=== PATIENT | male | born 1935 | race Caucasian/White ===

== ENCOUNTER 2023-03-05 13:00 | Emergency (ER) | payer MEDICARE, BC, SELFPAY ==
[2023-03-05] VITALS (10 sets, daily range): BP systolic 130–141; BP diastolic 58–71; PULSE 69–85; RESP 22; TEMP 36.8; O2SAT 97–100; BMI 23.5
--- NOTE | 2023-03-05 14:01 | ED_ITS ---
HPI - General Adult General Date Seen: 03/05/23 Chief complaint: Abdominal Pain Stated complaint: Pancreas issues Time Seen by Provider: 03/05/23 13:26 Source: patient Mode of arrival: ambulatory Limitations: no limitations History of Present Illness HPI narrative: Patient is an 87-year-old who had laminectomy surgery at [facility] on February 23. He says that he expected have some surgical pain, but he has been having some abdominal pain since his surgery which surprised him. He has been able eat drink, he has been having some loose stools, he has had some bright red blood particularly with wiping. Has not had significantly bloody stools, no black stools. He has had some urgency in terms of defecation and has been wearing a diaper due to that. Denies urinary symptoms. He has had some mid abdominal pain which has been pretty constant, has not been getting significantly worse. But yesterday he went to see his clinic doctor because of the abdominal pain and rectal bleeding. He had labs done there was called today saying the had some evidence of pancreatic inflammation and should come to the ER. He does not know anything further about that. He has not had any nausea or vomiting. Not had fevers. Denies chest pain or difficulty breathing. Has a little pain at the surgical site but not severe. Related Data Allergies Allergy/AdvReac Type Severity Reaction Status Date / Time No Known Drug Allergies Allergy Verified 03/05/23 15:02 Review of Systems Status of ROS: Reports: 10 or more systems reviewed and unremarkable except as noted in History and below [facility] Social History Smoking Status: Never smoker Do you use any of these nicotine containing products: None Second hand tobacco smoke exposure: No How often do you have a drink containing alcohol: 2-3 times a week How many standard drinks containing alcohol do you have on a typical day: 1 or 2 How often do you have six or more drinks on one occasion: Never AUDIT-C Alcohol total score: 3 Non-prescribed substance use: denies use service: Yes Exam Narrative: Exam Narrative: Vital signs as noted above. In general, an alert, well-appearing patient. He looks comfortable. Head: Normocephalic, atraumatic. Eyes: Pupils are equal reactive. Extraocular movements are full. Conjunctivae are normal. No scleral icterus. ENT: Mucous membranes are moist. Throat is normal. Neck: Supple without lymphadenopathy. Heart: Regular rate and rhythm. No murmur or rub. Lungs: Clear bilaterally. No increased work of breathing, crackles or wheezes. Abdomen: Soft and nondistended. Minimal tenderness, no rebound guarding or rigidity. Extremities: Well perfused. No edema. No calf tenderness. Pulses intact. Neurologic: Patient is alert and oriented to person and place. Speech is fluent. Face is symmetric. Moves all extremities equally. Affect: Normal. Skin: Warm and dry. Well perfused. Const: Vital Signs, click to edit/add: Vital Signs - 24 hr 03/05/23 13:09 03/05/23 14:22 03/05/23 14:30 Temperature 98.2 F Pulse Rate 73 72 Pulse Rate [Pulse Oximeter] 83 Respiratory Rate 22 Blood Pressure Blood Pressure [Ri ght Upper Arm] 130/64 Pulse Oximetry 97 100 99 Oxygen Delivery Me thod Room Air 03/05/23 14:32 03/05/23 14:45 03/05/23 15:12 Temperature Pulse Rate 69 81 74 Pulse Rate [Pulse Oximeter] Respiratory Rate Blood Pressure 139/71 Blood Pressure [Ri ght Upper Arm] Pulse Oximetry 99 100 99 Oxygen Delivery Me thod 03/05/23 15:15 03/05/23 15:30 03/05/23 15:32 Temperature Pulse Rate 72 75 85 Pulse Rate [Pulse Oximeter] Respiratory Rate Blood Pressure 141/58 H Blood Pressure [Ri ght Upper Arm] Pulse Oximetry 100 99 100 Oxygen Delivery Me thod 03/05/23 15:45 Temperature Pulse Rate 78 Pulse Rate [Pulse Oximeter] Respiratory Rate Blood Pressure Blood Pressure [Ri ght Upper Arm] Pulse Oximetry 99 Oxygen Delivery Me thod Documenting provider has reviewed patient's vital signs: yes Course Course Hospital Course: Initially, I ordered labs. His abdominal exam was benign, I was not particularly concerned about issues such as bowel obstruction, mesenteric ischemia, diverticulitis, colitis. He does note some bright red blood per rectum, but this seems to be mostly with wiping, and he saw his primary doctor yesterday so I think this can reasonably be followed up there unless his hemoglobin is low. He has had colonoscopies in the past, he notes probably last 1 was in his 70s, he has had polyps removed, no other significant findings per his memory. His white blood cell count was normal at 9.7, hemoglobin was 12.7. Platelets normal. Metabolic panel was unremarkable. His lactate was normal at 0.7. AST was 42, ALT of 57, mildly elevated but not impressively so. Alk-phos was normal and bilirubin was normal. His lipase came back at 354. This is mildly elevated, but he is complaining of 1 week of fairly mild abdominal pain with a normal appetite, no nausea or vomiting. I elected to do a CT scan to see if there was any evidence of inflammation around the pancreas or any other abnormalities to explain his abdominal pain. By my review, there was no significant inflammation around the pancreas, I did not see any evidence of diverticulitis or colitis, no obstruction. Overall was fairly unimpressive. The final radiology report is as follows:Impression: Grossly normal appearance of the pancreas with mild prominence of the main pancreatic duct. No overt peripancreatic inflammatory changes to suggest radiologically evident pancreatitis; however, correlate with serum lipase levels. Postoperative change of the L4-L5 level status post decompressive laminectomy without obvious complication. Incidental note made of a herniated loop of mid sigmoid colon into a large left inguinal hernia defect. No evidence of incarceration. No other acute abnormalities are appreciated. Overall, I think this is reassuring. He remains trouble here, abdominal exam remains benign. I have discussed with him that his lipase is in fact mildly elevated by think this is nonspecific in this setting. He does not present with signs and symptoms of significant pancreatitis I think it is reasonable to let him go home and see how he does over the weekend. I have asked him to maintain a bland diet, and have reviewed with him that it is certainly possible that this represents early pancreatitis. If he is having worsening abdominal pain, develops symptoms of fever, vomiting, etcetera he should return for re- evaluation. Otherwise, I would like him to follow up with his clinic next week for re-evaluation, a repeat lipase could be obtained at that time. He should follow-up with his primary doctor for the GI bleeding as well. His hemoglobin is 12.7. Vital Signs Vital signs: Initial Vital Signs Temperature 98.2 F 03/05/23 13:09 Temperature Source Temporal Artery Scan 03/05/23 13:09 Pulse Rate 83 03/05/23 13:09 Pulse Rhythm Regular 03/05/23 13:09 Respiratory Rate 03/05/23 13:09 Blood Pressure 130/64 03/05/23 13:09 Blood Pressure Mean 86 03/05/23 13:09 Blood Pressure Position Supine 03/05/23 13:09 Pulse Oximetry 97 03/05/23 13:09 Oxygen Delivery Method Room Air 03/05/23 13:09 Vital Signs Temperature 98.2 F 03/05/23 13:09 Pulse Rate 83 03/05/23 13:09 Respiratory Rate 22 03/05/23 13:09 Blood Pressure 130/64 03/05/23 13:09 Pulse Oximetry 97 03/05/23 13:09 Oxygen Delivery Method Room Air 03/05/23 13:09 Temperature 98.2 F 03/05/23 13:09 Pulse Rate 78 03/05/23 15:45 Respiratory Rate 03/05/23 13:09 Blood Pressure 141/58 H 03/05/23 15:32 Pulse Oximetry 99 03/05/23 15:45 Oxygen Delivery Method Room Air 03/05/23 13:09 Medical Decision Making Lab Data Labs: Lab Results 03/05/23 03/05/23 Range/Units 14:00 14:11 WBC 9.68 (4.50-11.00) K/uL RBC 3.89 L (4.30-5.90) m/uL Hgb 12.7 L (13.5-17.5) gm/dL Hct 37.3 (37.0-53.0) % MCV 96 (80-100) fL MCH 33 (26-34) pg MCHC 34 (32-36) gm/dL RDW Coeff of Zheng 14.0 (11.5-15.5) % Plt Count 370 (140-440) K/uL Neut % (Auto) 70.4 (42.0-72.0) % Lymph % (Auto) 16.6 L (20-44) % Morrill % (Auto) 10.6 (0.0-11.0) % Eos % (Auto) 1.0 (0.0-7.0) % Baso % (Auto) 0.3 (0.0-3.0) % Neut # (Auto) 6.80 (1.7-7.0) K/uL Lymph # (Auto) 1.60 (0.90-2.90) K/uL Morrill # (Auto) 1.00 H (0.00-0.90) K/UL Eos # (Auto) 0.10 (0.00-0.50) K/uL Baso # (Auto) 0.03 (0.00-0.30) K/uL Sodium 134 L (135-149) mmol/L Potassium 4.5 (3.6-5.1) mmol/L Chloride 101 (96-114) mmol/L Carbon Dioxide 26 (20-32) mmol/L BUN 21 (7-30) mg/dL Creatinine 1.0 (0.5-1.5) mg/dL Estimated Creat Clear 50.49 Estimated GFR 74 ml/min Glucose 91 (60-115) mg/dL Lactate 0.7 (0.5-1.9) mmol/L Calcium 9.1 (8.4-10.6) mg/dL Total Bilirubin 0.3 (0.1-1.5) mg/dL Direct Bilirubin 0.1 (0.0-0.5) mg/dL AST 42 H (12-35) U/L ALT 57 H (4-50) U/L Alkaline Phosphatase 60 (40-150) U/L C-Reactive Protein 0.7 (0.5-1.0) mg/dL Total Protein 6.4 (6.0-8.3) g/dL Albumin 3.9 (3.3-5.0) g/dL Lipase 354 H (23-300) U/L Urine Color Yellow (Yellow) Urine Appearance Clear (Clear) Urine pH 5.5 (5.0-8.5) Ur Specific [place] 1.025 (1.000-1.030) Urine Protein Negative (Negative) Urine Glucose (UA) Negative (Negative) Urine Ketones Negative (Negative) Urine Blood Negative (Negative) Urine Nitrite Negative (Negative) Urine Bilirubin Negative (Negative) Urine Urobilinogen 0.2 (0.2-1.0) Ur Leukocyte Esterase Negative (Negative) Urine RBC 0-2 (0-2) Urine WBC 0-2 (0-5) Ur Squamous Epith Cells Few (None-Few) Urine Bacteria None (None) Discharge Plan Discharge Clinical Impression: BRBPR (bright red blood per rectum), Elevated lipase Patient Disposition: Home, Self-Care Condition: Stable Additional Instructions: Your CT scan does not show any evidence of significant inflammation around your pancreas or other notable abnormalities to explain abdominal pain. You do have a large hernia in your left groin, but at this time this does not seem to be causing any problems. If you develop significant pain in this area, vomiting, fever, or other changes, you should come back for re-evaluation. Otherwise, I would recommend a bland diet for a couple of days, and re-evaluation with your primary doctor next week to reassess her status. Your lipase today is 350, which is very minimally elevated, but nonspecific in the setting of your other symptoms. Follow Up/Referrals: Felipe Orellana MD [Primary Care Provider] - Stand Alone Forms: [employer] Instructions
[2023-03-05 14:18] LABS: Lactate* 0.7 mmol/L (0.5-1.9)
[2023-03-05] MEDS: 0.9 % SODIUM CHLORIDE 500 ML 500 ML IV (14:22)
[2023-03-05 14:23] LABS: Appearance Urine Clear (Clear); Bilirubin Urine Negative (Negative); Blood Urine Negative (Negative); Color Urine Yellow (Yellow); Glucose Urine Negative (Negative); Ketones Urine Negative (Negative); Leukocyte Esterase Urine Negative (Negative); Nitrite Urine Negative (Negative); Protein Urine Negative (Negative); Specific Gravity Urine 1.025 (1.000-1.030); Urobilinogen Urine 0.2 (0.2-1.0); pH Urine 5.5 (5.0-8.5)
[2023-03-05 14:27] LABS: RBC Urine 0-2 (0-2); Squamous Epithelial Cell Urine Few (None-Few); WBC Urine 0-2 (0-5)
[2023-03-05 14:35] LABS: Albumin* 3.9 g/dL (3.3-5.0); Chloride* 101 mmol/L (96-114); Sodium* 134 mmol/L (135-149)
[2023-03-05 14:36] LABS: Potassium* 4.5 mmol/L (3.6-5.1)
[2023-03-05 14:38] LABS: Est. Creatinine Clearance* 50.49; Estimated Glomerular Filt Rate 74 ml/min
[2023-03-05 14:39] LABS: Alanine Aminotransferase* 57 U/L (4-50); Alkaline Phosphatase* 60 U/L (40-150); Aspartate Amino Transferase* 42 U/L (12-35); Bilirubin Direct* 0.1 mg/dL (0.0-0.5); Bilirubin Total* 0.3 mg/dL (0.1-1.5); Blood Urea Nitrogen* 21 mg/dL (7-30); Calcium* 9.1 mg/dL (8.4-10.6); Carbon Dioxide* 26 mmol/L (20-32); Glucose* 91 mg/dL (60-115); Lipase* 354 U/L (23-300); Total Protein* 6.4 g/dL (6.0-8.3)
[2023-03-05 14:42] LABS: C Reactive Protein* 0.7 mg/dL (0.5-1.0)
[2023-03-05 14:52] LABS: Basophils Absolute Auto 0.03 K/uL (0.00-0.30); Basophils Percent Auto 0.3 % (0.0-3.0); Hematocrit 37.3 % (37.0-53.0); Hemoglobin* 12.7 gm/dL (13.5-17.5); Immature Granulocytes Abs Auto 0.11 K/uL (0.00-0.30); Immature Granulocytes Pct Auto 1.1 %; Lymphocytes Percent Auto 16.6 % (20-44); Mean Corpuscular HGB Conc 34 gm/dL (32-36); Mean Corpuscular Hemoglobin 33 pg (26-34); Mean Corpuscular Volume 96 fL (80-100); Monocytes Percent Auto 10.6 % (0.0-11.0); Neutrophils Percent Auto 70.4 % (42.0-72.0); Platelet Count* 370 K/uL (140-440); Red Blood Count 3.89 m/uL (4.30-5.90); White Blood Count* 9.68 K/uL (4.50-11.00)
--- NOTE | 2023-03-05 14:52 | CRLHL7_ITS ---
For Patients: As a result of the 21st Century Cures Act, medical imaging exams and procedure reports are released immediately into your electronic medical record. You may view this report before your referring provider. If you have questions, please contact your health care provider. Indication: Abdominal pain x1 week, mildly elevated lipase history of laminectomy February 23, 2023 Technique: Volumetric multidetector CT images of the abdomen and pelvis were obtained after the administration of intravenous contrast. 74 cc Isovue 370 low osmolar intravenous contrast Comparison: None available. Findings: There is minimal basilar atelectasis and parenchymal scar. There is mild intrahepatic biliary ductal prominence. There is no focal abnormality. The portal vein is patent. There is prior cholecystectomy. There is no significant common biliary ductal dilatation or abrupt cut off. The spleen is normal in enhancement and size. There is mild nonspecific thickening of the gastric rugal folds and antrum with minimal mucosal hyperemia likely representing mild gastritis changes. There is mild prominence of the main pancreatic duct with otherwise preserved pancreatic attenuation. No overt peripancreatic inflammation is appreciated. The adrenal glands are unremarkable. Cystic changes of the kidneys are appreciated with nonspecific perinephric stranding. There is no evidence of distal obstructive calculus or hydronephrosis. There is moderate stool seen throughout the colon with dilated fluid-filled central small-bowel which may represent mild enteritis change. There is a small focal herniated loop of mid sigmoid colon within a left inguinal hernia. The appendix is not visualized, surgically absent. There is no significant mesenteric, retroperitoneal, or pelvic sidewall lymph nodes. The aorta is nonaneurysmal. There is no significant atherosclerotic disease appreciated. The solid pelvic viscera are grossly unremarkable. There is no free fluid or free air. There is demonstration of a large: Containing left inguinal hernia without evidence of incarceration The lumbar vertebral body heights are grossly maintained with minimal endplate Schmorl`s defects. There is decompressive laminectomy change at the L4-L5 level with minimal postoperative changes in the median soft tissues. Impression: Grossly normal appearance of the pancreas with mild prominence of the main pancreatic duct. No overt peripancreatic inflammatory changes to suggest radiologically evident pancreatitis; however, correlate with serum lipase levels. Postoperative change of the L4-L5 level status post decompressive laminectomy without obvious complication. Incidental note made of a herniated loop of mid sigmoid colon into a large left inguinal hernia defect. No evidence of incarceration. No other acute abnormalities are appreciated. Please note that all CT scans at this facility use dose modulation, iterative reconstruction, and/or weight-based dosing when appropriate to reduce radiation dose to as low as reasonably achievable. Dictated by Robert Bowser MD @ 03/05/2023 4:16:27 PM (Electronically Signed)
[2023-03-05 14:54] LABS: Slide Review Reflex No
== END 2023-03-05 16:53 | disposition home or self-care (01) ==
PROVIDERS: Emergency Provider Emergency Medicine; PCP Internal Medicine
DX: K62.5 Hemorrhage of anus and rectum (principal); R74.8 Abnormal levels of other serum enzymes
CPT/HCPCS: 36415; 74177; 80048; 80076; 81001; 83605; 83690; 85025; 86140; 96360; 99284; 99285; J7120; Q9967

== ENCOUNTER 2023-05-24 23:03 | Observation (INO) | payer MEDICARE, BC, SELFPAY ==
[2023-05-24 23:11] VITALS: BP 148/61; PULSE 60; RESP 18; TEMP 36.1; O2SAT 100
[2023-05-25] VITALS (12 sets, daily range): BP systolic 115–144; BP diastolic 63–77; PULSE 57–93; RESP 15–18; TEMP 36.1–36.4; O2SAT 96–100; BMI 22.9
--- NOTE | 2023-05-25 00:01 | ED_ITS ---
HPI - General Adult General Time Seen by Provider: 00:01 Date Seen: 05/25/23 Chief complaint: Fall/Minor Trauma Stated complaint: Memory loss, confusion, dizzy Time Seen by Provider: 05/25/23 00:00 Source: patient, family, RN notes reviewed and old records reviewed Mode of arrival: ambulatory Limitations: no limitations History of Present Illness HPI narrative: 87-year-old male who comes in today after a fall at home. Apparently he lost his balance in the garage and fell, did hit his head but no loss of consciousness. Patient has been having problems with memory for while and is having neuropsychiatric testing done this fall. Family notes the patient was confused this evening prior to his fall which is new today, does not remember events just prior to the home was having memory problems prior to this. Patient self has no complaints. Denies headache, neck pain, chest pain, breathing difficulty, shortness of breath, nausea, vomiting, diarrhea. Related Data Allergies Allergy/AdvReac Type Severity Reaction Status Date / Time No Known Drug Allergies Allergy Verified 03/05/23 15:02 Review of Systems Status of ROS: Reports: 10 or more systems reviewed and unremarkable except as noted in History and below [facility] Social History Smoking Status: Never smoker Do you use any of these nicotine containing products: None Second hand tobacco smoke exposure: No How often do you have a drink containing alcohol: 2-3 times a week How many standard drinks containing alcohol do you have on a typical day: 1 or 2 How often do you have six or more drinks on one occasion: Never AUDIT-C Alcohol total score: 3 Non-prescribed substance use: denies use service: Yes Exam Narrative: Exam Narrative: General: Well-developed and well-nourished, no acute distress Head: Atraumatic and normocephalic Eyes: Pupils are equal reactive, extraocular motions intact, conjunctiva clear ENT: External nose and ears are normal, posterior pharynx without erythema or exudate Neck: No midline cervical tenderness, full spontaneous range of motion the neck, trachea midline, no adenopathy Heart: Regular rate and rhythm no murmurs or thrills Lungs: Clear to auscultation bilaterally without wheezes or crackles Abdomen: Soft, nontender, nondistended with active bowel sounds Musculoskeletal: No tenderness, deformity, or edema Neurologic: Awake, alert, and oriented x1, no gross focal neurologic deficits, cranial nerves intact as tested Psych: Mood and affect are appropriate Skin: No rashes Const: Vital Signs, click to edit/add: Vital Signs - 24 hr 05/24/23 23:11 05/25/23 01:00 05/25/23 01:02 Temperature 97.0 F L Pulse Rate 60 59 L Pulse Rate [Left P ulse Oximeter] 60 Respiratory Rate 18 18 18 Blood Pressure 125/65 133/69 Blood Pressure [Ri ght Upper Arm] 148/61 H Pulse Oximetry 100 99 96 Oxygen Delivery Me thod Room Air Course Course Hospital Course: Patient seen examined, prior records are reviewed. Patient presents today with acute confusion this afternoon on top of some pre-existing memory problems. On initial exam, patient follows direction but has repetitive questioning, oriented only to person although does recognize family members. No focal neurologic deficits and no external signs of head trauma. Labs and head CT are ordered to evaluate for possible cause of confusion. Reevaluation(s) Time of Reevaluation #1: 01:22 Reevaluation #1: Head CT independently interpreted by me negative for acute findings. Labs independently interpreted by me with reassuring CBC, urinalysis not consistent with infection, basic panel reassuring, hepatic panel reassuring. Venous blood gas does not demonstrate respiratory acidosis or hypercarbia. Blood alcohol is significantly elevated at 0.19 which may be contributing to patient's symptoms of confusion tonight. Otherwise remains vitally stable. Time of Reevaluation #2: 01:35 Reevaluation #2: Patient rechecked, discussed CT and lab findings so far. Patient still feels well, family thinks he is mentating little more appropriately. Suspect that symptoms may be a combination of alcohol intoxication plus head injury with no acute intracranial findings on CT scan, no hemorrhage. Family is a little concerned about taking him home, and although I suspect he will clear overnight if he fails to do so appropriately, would need further evaluation in the hospital including possibly MRI. Because of this, plan for observation tonight and re-evaluation the morning. Care will be discussed with [facility] hospitalist. Time of Reevaluation #3: 02:01 Reevaluation #3: Care discussed with hospitalist for admission Vital Signs Vital signs: Initial Vital Signs Temperature 97.0 F L 05/24/23 23:11 Temperature Source Temporal Artery Scan 05/24/23 23:11 Pulse Rate 60 05/24/23 23:11 Pulse Rhythm Regular 05/24/23 23:11 Respiratory Rate 18 05/24/23 23:11 Blood Pressure 148/61 H 05/24/23 23:11 Blood Pressure Mean 90 05/24/23 23:11 Blood Pressure Position Sitting 05/24/23 23:11 Pulse Oximetry 100 05/24/23 23:11 Oxygen Delivery Method Room Air 05/24/23 23:11 Vital Signs Temperature 97.0 F L 05/24/23 23:11 Pulse Rate 60 05/24/23 23:11 Respiratory Rate 18 05/24/23 23:11 Blood Pressure 148/61 H 05/24/23 23:11 Pulse Oximetry 100 05/24/23 23:11 Oxygen Delivery Method Room Air 05/24/23 23:11 Temperature 97.0 F L 05/24/23 23:11 Pulse Rate 59 L 05/25/23 01:02 Respiratory Rate 18 05/25/23 01:02 Blood Pressure 133/69 05/25/23 01:02 Pulse Oximetry 96 05/25/23 01:02 Oxygen Delivery Method Room Air 05/24/23 23:11 Medical Decision Making Medical Records Medical records reviewed: Yes I reviewed the patient's medical records Lab Data Lab results reviewed: Yes I reviewed the patient's lab results Labs: Lab Results 05/25/23 05/25/23 05/25/23 Range/Units 00:33 00:35 01:39 WBC 9.46 (4.50-11.00) K/uL RBC 4.38 (4.30-5.90) m/uL Hgb 13.7 (13.5-17.5) gm/dL Hct 41.1 (37.0-53.0) % MCV 94 (80-100) fL MCH 31 (26-34) pg MCHC 33 (32-36) gm/dL RDW Coeff of Zheng 13.1 (11.5-15.5) % Plt Count 286 (140-440) K/uL Neut % (Auto) 73.6 H (42.0-72.0) % Lymph % (Auto) 18.4 L (20-44) % Coleman % (Auto) 6.7 (0.0-11.0) % Eos % (Auto) 0.8 (0.0-7.0) % Baso % (Auto) 0.1 (0.0-3.0) % Neut # (Auto) 7.00 (1.7-7.0) K/uL Lymph # (Auto) 1.70 (0.90-2.90) K/uL [place] # (Auto) 0.60 (0.00-0.90) K/UL Eos # (Auto) 0.08 (0.00-0.50) K/uL Baso # (Auto) 0.01 (0.00-0.30) K/uL Abs Immat Gran (auto) 0.04 (0.00-0.30) K/uL Imm/Tot Granulo (auto) 0.4 % VBG pH 7.316 L (7.32-7.43) VBG pCO2 48 (40-50) mmHG VBG pO2 23.8 L (25-47) mmHG VBG HCO3 24 (21-28) mmol/L Sodium 140 (135-149) mmol/L Potassium 3.7 (3.6-5.1) mmol/L Chloride 107 (96-114) mmol/L Carbon Dioxide 23 (20-32) mmol/L BUN 24 (7-30) mg/dL Creatinine 1.2 (0.5-1.5) mg/dL Estimated GFR 59 ml/min Glucose 102 (60-115) mg/dL Calcium 9.2 (8.4-10.6) mg/dL Magnesium 2.3 (1.5-2.6) mg/dL Total Bilirubin 0.2 (0.1-1.5) mg/dL Direct Bilirubin 0.0 (0.0-0.5) mg/dL AST 26 (12-35) U/L ALT 27 (4-50) U/L Alkaline Phosphatase 77 (40-150) U/L Total Protein 6.9 (6.0-8.3) g/dL Albumin 4.0 (3.3-5.0) g/dL Urine Color Yellow (Yellow) Urine Appearance Clear (Clear) Urine pH 5.5 (5.0-8.5) Ur Specific [place] 1.015 (1.000-1.030) Urine Protein 2+ A (Negative) Urine Glucose (UA) Negative (Negative) Urine Ketones Negative (Negative) Urine Blood Negative (Negative) Urine Nitrite Negative (Negative) Urine Bilirubin Negative (Negative) Urine Urobilinogen 0.2 (0.2-1.0) Ur Leukocyte Esterase Negative (Negative) Urine RBC 0-2 (0-2) Urine WBC 0-2 (0-5) Ur Squamous Epith Cells Few (None-Few) Urine Bacteria None (None) Ethyl Alcohol 0.19 H (0.01-0.03) % Lab Acknowledgement Test Added ECG Data Attestation: I personally reviewed and interpreted this ECG as follows: Prior ECG tracings: not available for review Interpretation: Performed at 1:46 a.m. demonstrates sinus rhythm rate 57, no acute ST elevations or depressions, normal intervals, normal axis, QTC 449, LA 170. No prior for comparison. Discharge Plan Discharge Clinical Impression: Alcohol intoxication, Fall, Acute encephalopathy Patient Disposition: Admitted As Observation
--- NOTE | 2023-05-25 00:11 | CRLHL7_ITS ---
For Patients: As a result of the Century Cures Act, medical imaging exams and procedure reports are released immediately into your electronic medical record. You may view this report before your referring provider. If you have questions, please contact your health care provider. INDICATION: Altered mental status, fall. TECHNIQUE: Head CT without contrast. COMPARISON: 07/16/2021. FINDINGS: CSF spaces: Proportionate prominence of the ventricles and sulci, reflecting mild generalized cerebral volume loss. Brain parenchyma: Patchy white matter low attenuation changes, nonspecific but likely reflecting chronic small vessel ischemic disease. No sign of mass, hemorrhage, or midline shift. Atherosclerotic calcifications of the cavernous carotids and carotid siphons. Skull base and calvarium: Mild mucosal thickening in the maxillary sinuses. Mastoid air cells are clear. Bilateral lens extraction. No skull fractures. IMPRESSION: No acute intracranial abnormality. Please note that all CT scans at this facility use dose modulation, iterative reconstruction, and/or weight-based dosing when appropriate to reduce radiation dose to as low as reasonably achievable. Dictated by Harley Reynoso MD @ 05/25/2023 1:21:35 AM (Electronically Signed)
--- OUTSIDE RECORDS SUMMARY | 2023-05-25 00:29 | XMS_ITS | Patient Health Record ---
Author Name Unknown Organization [facility] Address [address] [place] [address] [address] [place] [address] Care Team Providers Care Ring Stamper Name Role Phone Esteban[place]ather[place] Primary Care Provider UnavailStephen Hubbard Unavailable [phone] Gregg Cho Unavailable [phone] Mery Liang Unavailable [phone] Emeli Hooks Unavailable [phone] Cinthia Jorge Unavailable [phone] ALLERGIES No Known Allergies REASON FOR REFERRAL Reason REHAB PT and OT: MED X LUMBAR Please treat and evaluate for low back pain with Lumbar MedX and leg strengthening. Please call patient to schedule at [phone]. Diagnosis 1 Low back pain, unspe cified (M54.50) Referral Organization [facility] Referring Provider First Name Stephen Referring Provider Last Name Stefania Referring Provider Speciality Pain Medic ine Referred Provider Florecita Kirk Referred Provider Specialty Rehabilitati on General Notes Michi Rodriguez 07/25 12:36:17 PM >[employer] Medicare, no PA required. Ok to schedule.Kenzie Shelbie 08/10/2022 02:01:22 PM >Pt is scheduled Referral Priority Routine MEDICATIONS Medication SIG (Take, Route, Frequency, Duration) Notes Start Date End Date Status Atenolol 50 MG 1 tablet Orally Once a day Active Atorvastatin Calcium Active Sertraline HCl 50 MG 1 tablet Orally Once a day Active Lisinopril 20 MG 1 tablet Orally Once a day Active Pantoprazole Sodium 40 MG 1 tablet Orally Once a day Active SOCIAL HISTORY Tobacco Use: Social History Observation Description Date Details (start date - stop date) Never Smoker NA - NA Sex Assigned At : Social History Observation Description Sex Assigned At Unknown Tobacco Use/Smoking: Question Answer Notes Are you a nonsmoker Alcohol Screen Question Answer Notes Did you have a drink containing alcohol in the p ast year? No Points 0 Interpretation Negative PROBLEMS Problem Type ICD Code Onset Dates Problem Status W/U Status Risk SNOMED Code Notes Problem Other chronic pain (G89.29) Active confirmed Chronic pain (41066265) VITAL SIGNS Blood pressure diastolic 64 mm Hg 08/07/2022 Height 67 in 08/07/2022 Blood pressure systolic 130 mm Hg 08/07/2022 Weight 151 lbs 08/07/2022 BMI 23.65 kg/m2 08/07/2022 Encounters Encounter Location Date Provider Diagnosis [facility] [address] [facility] [address] [place] [address] 07/27/2022 Gregg Cho [address] [facility] [address] [facility] [address] [place] [address] 08/07/2022 Stephen Aguiar Other chronic pain G89.29 and Low back pain, unspecified M54.50 [facility] [address] [place] [address] 08/20/2022 Emeli Hooks Other chronic pain G89.29 and Low back pain, unspecified M54.50 [facility] [address] [place] [address] 08/24/2022 Cinthia Htet Other chronic pain G89.29 and Low back pain, unspecified M54.50 [facility] [address] [place] [address] 08/27/2022 Cinthia Htet Other chronic pain G89.29 and Low back pain, unspecified M54.50 [facility] [address] [place] [address] 08/31/2022 Cinthia Htet Other chronic pain G89.29 and Low back pain, unspecified M54.50 [facility] [address] [place] [address] 09/03/2022 Cinthia Htet Other chronic pain G89.29 and Low back pain, unspecified M54.50 [facility] [address] [place] [address] 09/07/2022 Mery Liang Other chronic pain G89.29 and Low back pain, unspecified M54.50 [facility] [address] [place] [address] 09/10/2022 Cinthia Jorge Other chronic pain G89.29 and Low back pain, unspecified M54.50 [facility] [address] [place] [address] 09/15/2022 Stephen Aguiar ASSESSMENTS Encounter Date Diagnosis Assessment Notes Treatment Notes Treatment Clinical Notes 09/10/2022 Other chronic pain (ICD-10 - G89.29) 09/07/2022 Other chronic pain (ICD-10 - G89.29) 09/03/2022 Other chronic pain (ICD-10 - G89.29) 08/31/2022 Other chronic pain (ICD-10 - G89.29) 08/27/2022 Other chronic pain (ICD-10 - G89.29) 08/24/2022 Other chronic pain (ICD-10 - G89.29) 08/20/2022 Other chronic pain (ICD-10 - G89.29) 08/07/2022 Other chronic pain (ICD-10 - G89.29) Shan is a 87 year old male with a pertinent past medical history significant for CAD, Acid Reflux, Depression, Hernia, Hearing Loss, Hypertension, and Stomach Ulcers who is presenting with chronic low back and bilateral lower extremity pain related to LSS. PLAN:- Conservative: remain active as able- Medications: Continue OTC NSAIDs- Imaging: reviewed 12/04/21 Lumbar MRI and Abdomen and Pelvis CT from 10/01/21- Injections/intervent ions: none- Referrals: Referred to Lumbar MedX with leg strengthening; consider surgical follow-up pending relief from PT I provided the patient with my card. He will return as needed for further evaluation. I will continue to monitor his progress, adjusting his treatment plan as needed. The patient was ready to learn and had no apparent learning barriers. Their learning preferences includes listening. The diagnosis and treatment plans were explained and the patient expressed understanding of the content. Discharge instructions reviewed verbally. Discussed the risks/benefits of prescribed medication. The patient is aware that medication may be discontinued at any time due to poor compliance with visits, and recommended treatment and/or if patient doesn't adhere to the signed pain contract. The patient was instructed to return to the office as scheduled and call with any questions, problems or concerns. 08/07/2022 Low back pain, unspecified (ICD-10 - M54.50) 08/20/2022 Low back pain, unspecified (ICD-10 - M54.50) 08/24/2022 Low back pain, unspecified (ICD-10 - M54.50) 08/27/2022 Low back pain, unspecified (ICD-10 - M54.50) 08/31/2022 Low back pain, unspecified (ICD-10 - M54.50) 09/03/2022 Low back pain, unspecified (ICD-10 - M54.50) 09/07/2022 Low back pain, unspecified (ICD-10 - M54.50) 09/10/2022 Low back pain, unspecified (ICD-10 - M54.50) 08/07/2022 Other I, Pastor cordova, am serving as a scribe to document services personally performed by Stephen Aguiar MD, based upon my observations and the provider's statements to me. All documentation has been reviewed by the aforementioned doctor prior to being entered into the official medical record. I, Stephen Aguiar MD attest that the above named individual is acting in scribe capacity, has observed my performance of the services and has documented them in accordance with my direction. The documentation recorded by the scribe accurately reflects the service I personally performed and the decisions made by me. PLAN OF TREATMENT No Information Insurance Providers Payer Name Payer Address Payer Phone Subscriber Number Group Number Insured Name Patient Relationship to Insured Coverage Start Date Coverage End Date [facility] Medicare [address] [place] [phone] [id number] Luther[employer]elope Shan Self - patient is the insured 2 MEDICAL (GENERAL) HISTORY Medical History History ICD Code CAD Acid reflux Depression hernia hearing loss Hypertension stomach ulcers Surgical History Surgery Date(Month/Year) cholecystectomy appendectomy prostatectomy
[2023-05-25 00:39] LABS: HCO3 VBG 24 mmol/L (21-28); PCO2 VBG 48 mmHG (40-50); PO2 VBG 23.8 mmHG (25-47); pH VBG 7.316 (7.32-7.43)
[2023-05-25 00:43] LABS: Basophils Absolute Auto 0.01 K/uL (0.00-0.30); Basophils Percent Auto 0.1 % (0.0-3.0); Eosinophils Absolute Auto 0.08 K/uL (0.00-0.50); Eosinophils Percent Auto 0.8 % (0.0-7.0); Hematocrit 41.1 % (37.0-53.0); Hemoglobin* 13.7 gm/dL (13.5-17.5); Immature Granulocytes Abs Auto 0.04 K/uL (0.00-0.30); Immature Granulocytes Pct Auto 0.4 %; Lymphocytes Percent Auto 18.4 % (20-44); Mean Corpuscular HGB Conc 33 gm/dL (32-36); Mean Corpuscular Hemoglobin 31 pg (26-34); Mean Corpuscular Volume 94 fL (80-100); Monocytes Percent Auto 6.7 % (0.0-11.0); Neutrophils Percent Auto 73.6 % (42.0-72.0); Platelet Count* 286 K/uL (140-440); RDW Coefficient of Variation % 13.1 % (11.5-15.5); Red Blood Count 4.38 m/uL (4.30-5.90); White Blood Count* 9.46 K/uL (4.50-11.00)
[2023-05-25 00:48] LABS: Slide Review Reflex No
[2023-05-25 00:51] LABS: Appearance Urine Clear (Clear); Bilirubin Urine Negative (Negative); Blood Urine Negative (Negative); Color Urine Yellow (Yellow); Glucose Urine Negative (Negative); Ketones Urine Negative (Negative); Leukocyte Esterase Urine Negative (Negative); Nitrite Urine Negative (Negative); Protein Urine 2+ (Negative); Specific Gravity Urine 1.015 (1.000-1.030); Urobilinogen Urine 0.2 (0.2-1.0); pH Urine 5.5 (5.0-8.5)
[2023-05-25 00:56] LABS: RBC Urine 0-2 (0-2); Squamous Epithelial Cell Urine Few (None-Few); WBC Urine 0-2 (0-5)
[2023-05-25 01:12] LABS: Chloride* 107 mmol/L (96-114); Potassium* 3.7 mmol/L (3.6-5.1); Sodium* 140 mmol/L (135-149)
[2023-05-25 01:15] LABS: Carbon Dioxide* 23 mmol/L (20-32); Creatinine* 1.2 mg/dL (0.5-1.5); Estimated Glomerular Filt Rate 59 ml/min; Ethanol* 0.19 % (0.01-0.03)
[2023-05-25 01:16] LABS: Aspartate Amino Transferase* 26 U/L (12-35); Bilirubin Total* 0.2 mg/dL (0.1-1.5); Blood Urea Nitrogen* 24 mg/dL (7-30); Calcium* 9.2 mg/dL (8.4-10.6); Glucose* 102 mg/dL (60-115); Magnesium* 2.3 mg/dL (1.5-2.6); Total Protein* 6.9 g/dL (6.0-8.3)
[2023-05-25 01:17] LABS: Alanine Aminotransferase* 27 U/L (4-50); Alkaline Phosphatase* 77 U/L (40-150)
[2023-05-25 02:10] LABS: Troponin I* < 0.01 ng/mL (0.01-0.04)
--- NOTE | 2023-05-25 02:43 | PC.NURSE ---
report given to Cadence Roberson/manager surgical
--- NOTE | 2023-05-25 02:46 | ED.NURSE ---
skin tear on left elbow cleaned, ointment applied, and band aid. bleeding had stopped prior to treatment
--- NOTE | 2023-05-25 02:56 | PC.NURSE ---
patient taken to room ccu3
--- NOTE | 2023-05-25 03:30 | P.IMCN_ITS ---
Date of Consult Consult date: 05/25/23 Primary Care Provider: Felipe Orellana MD Consult Narrative Reason for consult: Admission support Narrative: 87-year-old male with past medical history of reported short memory loss was brought into the hospital after a fall with acute encephalopathy. History was obtained from the patient as well as from his daughter was present at the time of my evaluation. He is hard of hearing and she assisted in providing history. She reports that he was visiting a friend last night and he experienced an episode where he suddenly became confused and did not recognize his friend or where he is. He was taken home but suffered a fall for which he was subsequently brought into the emergency department. His daughter reports no similar episodes of confusion in the past however he had at least 1-2 falls over the last year. He has a known history of CAD. No strokes or TIA in the past. He reports having alcohol drink while visiting with his friend In the ED, labs were unremarkable except for elevated ethanol levels. He was hemodynamically stable. CT of the head without acute intracranial abnormality. After 1 hour of observation he was starting to slightly improving however was opted to be admitted for observation. Review of Systems Status of ROS: Reports: 10 or more systems reviewed and unremarkable except as noted in History and below PFSH PFSH Social History Smoking Status: Never smoker Do you use any of these nicotine containing products: None Second hand tobacco smoke exposure: No How often do you have a drink containing alcohol: 2-3 times a week How many standard drinks containing alcohol do you have on a typical day: 1 or 2 How often do you have six or more drinks on one occasion: Never AUDIT-C Alcohol total score: 3 Non-prescribed substance use: denies use service: Yes Meds Home Medications and Allergies Allergies Allergy/AdvReac Type Severity Reaction Status Date / Time No Known Drug Allergies Allergy Verified 03/05/23 15:02 Exam Narrative: Exam Narrative: Exam (performed via interactive video with assistance of bedside nurse): General: alert, cooperative, no acute distress HEENT: hard of hearing, Pupils reported ERRL, oral mucosa pink and moist without erythema Lungs: clear to auscultation bilaterally without crackle or wheeze CV: regular rate and rhythm without loud murmur rub or gallop Abd: bowel sounds present, denies tenderness and does not exhibit signs of pain with palpation done by bedside nurse Ext: no pitting edema noted Skin: no rashes, bruises or lesions appreciated on gross visualization of exposed skin Neuro: alert, oriented x 3. CN III -VII, XI, XII grossly intact, moves all extremities without any significant focal deficit appreciated by nurse. no visible tremor Const: Vital Signs, click to edit/add: Vital Signs - 24 hr 05/24/23 23:11 05/25/23 01:00 05/25/23 01:02 Temperature 97.0 F L Pulse Rate 60 59 L Pulse Rate [Left P ulse Oximeter] 60 Respiratory Rate 18 18 18 Blood Pressure 125/65 133/69 Blood Pressure [Ri ght Upper Arm] 148/61 H Pulse Oximetry 100 99 96 Oxygen Delivery Me thod Room Air 05/25/23 01:21 05/25/23 01:42 05/25/23 02:01 Temperature Pulse Rate 58 L 63 57 L Pulse Rate [Left P ulse Oximeter] Respiratory Rate 15 16 18 Blood Pressure 135/67 128/63 136/67 Blood Pressure [Ri ght Upper Arm] Pulse Oximetry 100 98 100 Oxygen Delivery Me thod 05/25/23 02:21 05/25/23 02:41 Temperature Pulse Rate 60 62 Pulse Rate [Left P ulse Oximeter] Respiratory Rate 16 18 Blood Pressure 115/63 119/64 Blood Pressure [Ri ght Upper Arm] Pulse Oximetry 96 99 Oxygen Delivery Me thod Documenting provider has reviewed patient's vital signs: yes Labs Labs: Short CBC 05/25/23 Range/Units 00:33 WBC 9.46 (4.50-11.00) K/uL Hgb 13.7 (13.5-17.5) gm/dL Hct 41.1 (37.0-53.0) % Plt Count 286 (140-440) K/uL BMP 05/25/23 00:33 Sodium 140 Potassium 3.7 Chloride 107 Carbon Dioxide 23 BUN 24 Creatinine 1.2 Glucose 102 Calcium 9.2 Cardiac Enzymes 05/25/23 Range/Units 00:33 Troponin I < 0.01 L (0.01-0.04) ng/mL Liver Function 05/25/23 Range/Units 00:33 Total Bilirubin 0.2 (0.1-1.5) mg/dL Direct Bilirubin 0.0 (0.0-0.5) mg/dL AST 26 (12-35) U/L ALT 27 (4-50) U/L Alkaline Phosphatase 77 (40-150) U/L Albumin 4.0 (3.3-5.0) g/dL Urine 05/25/23 Range/Units 00:35 Urine Color Yellow (Yellow) Urine Appearance Clear (Clear) Urine pH 5.5 (5.0-8.5) Ur Specific [place] 1.015 (1.000-1.030) Urine Protein 2+ A (Negative) Urine Glucose (UA) Negative (Negative) Assessment and Plan Assessment and plan (1) Acute encephalopathy: Status: Acute (2) Fall: Status: Acute (3) Alcohol intoxication: Status: Acute (4) History of CAD (coronary artery disease): Status: Acute Plan 1. Acute encephalopathy: has resolved already, unclear etiology but appears to be likely triggered by alcohol, monitor mental status, CT head without acute intracranial abnormality, check ammonia, TSH and B12, has appoitment soon with neurology for assessment for recent memory issues. Family report recent MRI without acute findings. Exam non focal. 2. Hx of CAD: restart home meds 3. Bradycardia: Sinus without acute ST or T wave changes, monitor on telemetry DVT prophylaxis: Lovenox CODE STATUS: Full (need to be addressed) Thank you for including Dunia Nolasco Hospitalist in the patients care. This service is available for further assistance as requested by your care team by calling [phone].
[2023-05-25 07:40] LABS: Ammonia* < 9.0 umol/L (13.1-30.0)
--- NOTE | 2023-05-25 07:45 | PC.NURSE ---
Patient admitted to unit at 0250 accompanied by daughter and granddaughter. Patient had acute onset of confusion followed by a fall earlier in the night. Currently patient is alert and oriented x 4, denies any pain, shortness of breath or chest pain. Lung sounds clear, patient does have dry non-productive cough at baseline. Bowel sounds active x 4 quadrants, belly soft and non tender. Continent of bladder and bowel. Daughter reporting that patient had tested positive for covid the second week of April and has had a reoccurrence of symptoms with cough. Daughter also reporting that patient has had memory impairment and patient has an appointment with neuropsych for assessment.
[2023-05-25 07:57] LABS: TSH With Reflex to FT4* 0.821 uIU/mL (0.270-4.200)
[2023-05-25 08:16] LABS: Vitamin B12* 804 pg/mL (243-894)
[2023-05-25] MEDS: THIAMINE 100 MG TABLET PO (09:31)
[2023-05-25] MEDS: SODIUM CHLORIDE 0.9 % (FLUSH) 10 ML SYRINGE 5 ML IVF (09:32)
[2023-05-25] MEDS: ASPIRIN 81 MG TAB.CHEW PO (09:32)
[2023-05-25] MEDS: FOLIC ACID 1 MG TABLET PO (09:32)
--- NOTE | 2023-05-25 09:55 | PM.IMHP1 ---
Hospitalist- H&P: HPI History of Present Illness Date Seen: 05/25/23 Chief complaint: Memory loss, confusion, dizzy Narrative: Shan John is a 87 year old male with coronary artery disease and chronic back pain admit to the hospital after a fall with encephalopathy. Patient reports that he was having pizza with his friend. He then apparently fell though he does not remember any details of this. He was brought to the emergency room where evaluation showed no acute injury or illness. Head CT was unremarkable. He was found to have an alcohol level of 0.19. This was thought to be the most likely explanation for his altered mental status and fall. Secondhand records indicate that he has been getting evaluation for memory problems with outpatient neuropsychiatric testing pending. He tells me that he does not drink every day. He typically drinks 1 day a week on Fridays by his report. Last night he was drinking shots of Tequila with his pizza. He reports no other recent health concerns. He had back surgery and February and has recovered well from that by his report. Review of Systems Narrative: Patient reports some discomfort over the left shoulder blade. He is not aware of any other area of pain or injury. No recent illness. [facility] Medical History (Updated 05/25/23 @ 10:10 by Lorne Souza MD) Hyperlipidemia ?E78.5 - Hyperlipidemia, unspecified (ICD-10) Hypertension ?I10 - Essential (primary) hypertension (ICD-10) Prostate cancer ?C61 - Malignant neoplasm of prostate (ICD-10) History of coronary angiogram ?Z98.890 - Other specified postprocedural states (ICD-10) Lumbar spinal stenosis ?M48.061 - Spinal stenosis, lumbar region without neurogenic claudication (ICD-10) History of CAD (coronary artery disease) ?Z86.79 - Personal history of other diseases of the circulatory system (ICD-10) Surgical History (Updated 05/25/23 @ 10:02 by Lorne Souza MD) History of cholecystectomy ?Z90.49 - Acquired absence of other specified parts of digestive tract (ICD-10) History of cataract surgery ?Z98.49 - Cataract extraction status, unspecified eye (ICD-10) H/O radical prostatectomy ?Z90.79 - Acquired absence of other genital organ(s) (ICD-10) History of appendectomy ?Z90.49 - Acquired absence of other specified parts of digestive tract (ICD-10) History of lumbar laminectomy ?Z98.890 - Other specified postprocedural states (ICD-10) Social History (Updated 05/25/23 @ 10:03 by Lorne Souza MD) Narrative: He lives in [place] with his and daughter. Temporarily also has grandchildren living with him. His spends much of her time caring for her sister who was recently had a stroke. He is independent in activities of daily living. He he does not use an assistive device for walking. He does not smoke. He reports drinking alcohol typically 1 drink on Fridays. Code status is full What is your current living situation?: I presently have a place to live Problems where you live: no known problems Problems where you live details: NA In the past 12 months, utilities in danger of being shut off: no In the past 12 mos, have been you worried that your food would run out before you had money to buy more?: never true In the past 12 mos, the food you bought just didn't last and you didn't have money to buy more?: never true Highest level of school completed/degree received: Professional degree (, [employer], DVM, DDS) Smoking Status: Former smoker What tobacco products do you use: cigarettes Smoking quit date/years: >15 years ago Do you use any of these nicotine containing products: None Second hand tobacco smoke exposure: No How often do you have a drink containing alcohol: 2-4 times a month Alcohol type: beer and hard liquor How many standard drinks containing alcohol do you have on a typical day: 1 or 2 How often do you have six or more drinks on one occasion: Never AUDIT-C Alcohol total score: 2 Non-prescribed substance use: denies use Caffeine: No How often does anyone, including family, friends and others, physically hurt you: never How often does anyone, including family, friends and others, insult or talk down to you: never How often does anyone, including family, friends and others, threaten you with harm: never How often does anyone, including family, friends and others, scream or curse at you: never service: Yes Meds Home Medications and Allergies Home Medications Medication Instructions Recorded Confirmed Type atenolol 50 mg tablet 50 mg PO DAILY 05/25/23 05/25/23 History atorvastatin 40 mg tablet 40 mg PO DAILY 05/25/23 05/25/23 History lisinopril 20 mg tablet 20 mg PO DAILY 05/25/23 05/25/23 History pantoprazole 40 mg tablet,delayed 40 mg PO BID 05/25/23 05/25/23 History release sertraline 50 mg tablet 50 mg PO DAILY 05/25/23 05/25/23 History trazodone 50 mg tablet 50 mg PO HS PRN 05/25/23 05/25/23 History Allergies Allergy/AdvReac Type Severity Reaction Status Date / Time No Known Drug Allergies Allergy Verified 03/05/23 15:02 Exam Narrative: Exam Narrative: He is alert and appears in no distress. Speech is normal. He is oriented to his circumstances. Head is without obvious trauma. Eyes are normal. Extraocular movements are full. He has no ophthalmoplegia. Oropharynx with small airway. Otherwise normal. Neck is supple without mass or adenopathy. Respirations are clear to auscultation. Cardiovascular: S1, S2, regular rate and rhythm. Min is soft without tenderness or mass. He has no facial asymmetry. Strength testing is 5/5 in upper and lower extremities in shoulder flexion and extension, elbow flexion extension, wrist flexion and extension, finger extension, hip flexion, knee flexion and extension, ankle dorsiflexion and plantar flexion. With his eyes closed in his feet together he is able to stand up about 3 seconds before having to open his eyes and step to catch his balance. No pronator drift. He is unable to do tandem gait but can walk without assistance without any difficulties. [id number] is normal. He has a mild fine tremor. He tells me he has been diagnosed with essential tremor. Left shoulder has a small 1.5 cm abrasion. This is located over the lateral scapular spine. Mild surrounding bruising. He has normal range of motion at shoulder with mild discomfort when reaching behind his head. Some mild pain associated with strength testing but strength is otherwise normal. Const: Vital Signs, click to edit/add: Vital Signs - 24 hr 05/24/23 23:11 05/25/23 01:00 05/25/23 01:02 Temperature 97.0 F L Pulse Rate 60 59 L Pulse Rate [Left P ulse Oximeter] 60 Pulse Rate [Right Pulse Oximeter] Respiratory Rate 18 18 18 Blood Pressure 125/65 133/69 Blood Pressure [Ri ght Arm] Blood Pressure [Ri ght Upper Arm] 148/61 H Pulse Oximetry 100 99 96 Oxygen Delivery Me thod Room Air 05/25/23 01:21 05/25/23 01:42 05/25/23 02:01 Temperature Pulse Rate 58 L 63 57 L Pulse Rate [Left P ulse Oximeter] Pulse Rate [Right Pulse Oximeter] Respiratory Rate 15 16 18 Blood Pressure 135/67 128/63 136/67 Blood Pressure [Ri ght Arm] Blood Pressure [Ri ght Upper Arm] Pulse Oximetry 100 98 100 Oxygen Delivery Me thod 05/25/23 02:05 05/25/23 02:21 05/25/23 02:41 Temperature 97.0 F L Pulse Rate 60 62 Pulse Rate [Left P ulse Oximeter] Pulse Rate [Right Pulse Oximeter] 93 Respiratory Rate 18 16 18 Blood Pressure 115/63 119/64 Blood Pressure [Ri ght Arm] 144/77 H Blood Pressure [Ri ght Upper Arm] Pulse Oximetry 98 96 99 [facility] 05/25/23 03:00 05/25/23 03:15 05/25/23 03:15 Temperature 97.0 F L 97.0 F L Pulse Rate Pulse Rate [Left P ulse Oximeter] Pulse Rate [Right Pulse Oximeter] 93 93 Respiratory Rate 18 18 18 Blood Pressure Blood Pressure [Ri ght Arm] 144/77 H 144/77 H Blood Pressure [Ri ght Upper Arm] Pulse Oximetry 97 98 98 [facility] Room Air Room Air 05/25/23 07:00 05/25/23 07:39 Temperature 97.5 F L Pulse Rate 60 Pulse Rate [Left P ulse Oximeter] Pulse Rate [Right Pulse Oximeter] 93 Respiratory Rate 16 Blood Pressure Blood Pressure [Ri ght Arm] 124/63 Blood Pressure [Ri ght Upper Arm] Pulse Oximetry 99 Oxygen Delivery Me thod Room Air Documenting provider has reviewed patient's vital signs: yes Hospitalist - H&P: Result Labs Labs: Short CBC 05/25/23 Range/Units 00:33 WBC 9.46 (4.50-11.00) K/uL Hgb 13.7 (13.5-17.5) gm/dL Hct 41.1 (37.0-53.0) % Plt Count 286 (140-440) K/uL BMP 05/25/23 00:33 Sodium 140 Potassium 3.7 Chloride 107 Carbon Dioxide 23 BUN 24 Creatinine 1.2 Glucose 102 Calcium 9.2 Cardiac Enzymes 05/25/23 Range/Units 00:33 Troponin I < 0.01 L (0.01-0.04) ng/mL Liver Function 05/25/23 Range/Units 00:33 Total Bilirubin 0.2 (0.1-1.5) mg/dL Direct Bilirubin 0.0 (0.0-0.5) mg/dL AST 26 (12-35) U/L ALT 27 (4-50) U/L Alkaline Phosphatase 77 (40-150) U/L Albumin 4.0 (3.3-5.0) g/dL Urine 05/25/23 Range/Units 00:35 Urine Color Yellow (Yellow) Urine Appearance Clear (Clear) Urine pH 5.5 (5.0-8.5) Ur Specific [place] 1.015 (1.000-1.030) Urine Protein 2+ A (Negative) Urine Glucose (UA) Negative (Negative) Assessment and Plan Assessment and plan (1) Alcohol intoxication: Problem comment: Likely the cause of his fall, amnesia for events of last night, encephalopathy. Advise no drinking more than 1 drink in 1 day and getting help if unable to moderate drinking Status: Acute (2) Abrasion of left shoulder: Problem comment: Superficial abrasion without obvious bony, ligamentous or tendon injury. Follow-up with primary care if ongoing shoulder pain or disability next week Status: Acute (3) Amnesia: Problem comment: Likely due to alcohol/black out Status: Acute (4) Acute encephalopathy: Problem comment: Likely due to alcohol. Resolved Status: Acute (5) History of CAD (coronary artery disease): Problem comment: Asymptomatic. Status: Acute Plan Patient now appears to be back to normal. He will be discharged to home with instructions to moderate alcohol use and get help if unable to do so. Total time spent today is 60 minutes, 40 minutes in coordination of care and discussing with patient and other providers ongoing evaluation management of fall, alcohol intoxication.
--- NOTE | 2023-05-25 10:44 | REH.OT ---
Per MD, no need for OT assessment today. He will discharge home with family. Patient has neuro psych testing this fall.
--- NOTE | 2023-05-25 11:27 | PC.NURSE ---
Pt alert and oriented. Ambulating independently. Ate breakfast independently. Tolerated reg diet. Reports left shoulder pain that is alleviated with rest. Pt discharged at this time. Accompanied by daughter. Pt ambulated independently. Wheelchair offered, pt declined. IV removed without difficulty. Pt education for falls and alcohol intoxication given.
== END 2023-05-25 11:23 | disposition home or self-care (01) ==
LOC: ED 05-25 02:07 → MEDSURG 05-25 02:56
PROVIDERS: Hospitalist; Admitting Provider Family Medicine; Emergency Provider Family Medicine; PCP Internal Medicine; Visit Provider Family Medicine
DX: F10.929 Alcohol use, unspecified with intoxication, unspecified (principal); S40.212A Abrasion of left shoulder, initial encounter; W18.30XA Fall on same level, unspecified, initial encounter; Y92.015 Private garage of single-family (private) house as the place of occurrence of the external cause; G93.40 Encephalopathy, unspecified; I25.10 Atherosclerotic heart disease of native coronary artery without angina pectoris; R41.3 Other amnesia
CPT/HCPCS: 36415; 70450; 80048; 80076; 81001; 82077; 82140; 82607; 82803; 83735; 84443; 84484; 85025; 93005; 97116; 97161; 99285; G0378; A9270